=== PATIENT | female | born 1965 | race Caucasian/White ===

== ENCOUNTER 2022-09-03 12:50 | Emergency (ER) | payer OTHER ==
[2022-09-03 14:08] LABS: CORONAVIRUS COVID-19 NAA NEGATIVE (NEGATIVE); RESPIRATORY SYNCYTIAL VIR NAA NEGATIVE (NEGATIVE)
[2022-09-03 14:12] LABS: ANION GAP 14.2 meq/L (7-15)
[2022-09-03] MEDS ORDERED: Take Home: Amoxicillin/Clavulanate K 875-125 MG Tab, 6 Tab Pack PO ONE (14:19)
[2022-09-03] MEDS ORDERED: cefTRIAXone 1 GM, Lidocaine 1% 1.2 ML IM SCH ×2 (14:30)
== END 2022-09-03 15:21 | disposition home or self-care (01) ==
LOC: LL.ED 12:50
DX: J02.0 Streptococcal pharyngitis (principal); Z20.822 Contact with and (suspected) exposure to COVID-19
CPT/HCPCS: 0241U; 36415; 80053; 85025; 87430; 99283; A9270-GY; J0696; J3490